=== PATIENT | female | born 1970 | race Caucasian/White ===

== ENCOUNTER 2019-10-31 12:54 | Outpatient (CLI) | payer OTHER ==
--- NOTE | 2019-11-01 07:26 | ULT ---
PELVIC ULTRASOUND WITH ENDOVAGINAL IMAGING 10/31/19 Transabdominal images were obtained initially. Endovaginal imaging was then done due to needing to se e better detail of the uterus and ovaries. The uterus measures 7.0 x 3.5 x 4.1 cm. There are several hypoechoic areas throughout it consistent w ith multiple fibroids. The largest measures 1.3 cm in size. The endometrium is not thick, measuring 4 mm in width. The right ovary was 2.6 cm long and the left was 2.1 cm. No mass or cyst was seen in either. No free fluid was present. IMPRESSION: Several hypoechoic areas throughout the uterus suggestive of several small uterine fibroids. Largest is 1.3 cm in size. POS: HOME
== END 2019-10-31 12:55 | disposition home or self-care (01) ==
LOC: BURULT 12:54
PROVIDERS: ATTEND Family Medicine
DX: N85.2 Hypertrophy of uterus (principal)
CPT/HCPCS: 76856

== ENCOUNTER 2020-01-19 12:49 | Emergency (ER) | payer OTHER | END 2020-01-19 13:11 | disposition home or self-care (01) | LOC: BURERS 12:49 | DX: M25.511 Pain in right shoulder (principal) | CPT/HCPCS: 99281 ==

== ENCOUNTER 2020-05-25 19:21 | Emergency (ER) | payer OTHER ==
[2020-05-25] MEDS ORDERED: Cyclobenzaprine 10 MG TAB ONE (19:53)
[2020-05-25] MEDS ORDERED: methylPREDNISolone Sod Succ/PF 125 MG/2 ML VIAL ONE (19:53)
== END 2020-05-25 20:10 | disposition home or self-care (01) ==
LOC: BURERS 19:21
DX: M54.42 Lumbago with sciatica, left side (principal); E03.9 Hypothyroidism, unspecified; Z87.891 Personal history of nicotine dependence; Z79.899 Other long term (current) drug therapy
CPT/HCPCS: 96372; 99283; J2930

== ENCOUNTER 2020-09-05 11:11 | Emergency (ER) | payer OTHER ==
[2020-09-05] MEDS ORDERED: HYDROcodone/Acetaminophen 5/325 mg Tablet ONE (12:05)
--- NOTE | 2020-09-05 15:27 | RAD ---
LUMBAR SPINE 3 VIEWS: Date: 09/05/2020 No fracture evident. The vertebral alignment seems normal. The disc spaces are normal in height. The SI joints are normal in appearance. A calcification is seen over the lower pole of the right kidney, which either may be within it or within bowel overlying it. IMPRESSION: No acute traumatic changes. POS: HOME
== END 2020-09-05 12:46 | disposition home or self-care (01) ==
LOC: BURERS 11:11
DX: S30.0XXA Contusion of lower back and pelvis, initial encounter (principal); E03.9 Hypothyroidism, unspecified; Z87.891 Personal history of nicotine dependence; Z79.899 Other long term (current) drug therapy; W19.XXXA Unspecified fall, initial encounter
CPT/HCPCS: 72100

== ENCOUNTER 2021-01-04 07:57 | Emergency (ER) | payer OTHER ==
[2021-01-04] MEDS ORDERED: Ketorolac Tromethamine 30 MG/ML VIAL ONE (08:43)
== END 2021-01-04 08:48 | disposition home or self-care (01) ==
LOC: BURERS 07:57
DX: M70.62 Trochanteric bursitis, left hip (principal); E03.9 Hypothyroidism, unspecified; F17.210 Nicotine dependence, cigarettes, uncomplicated; Z79.899 Other long term (current) drug therapy
CPT/HCPCS: 96372; J1885

== ENCOUNTER 2021-01-21 09:38 | Outpatient (CLI) | payer OTHER | END 2021-01-21 09:39 | disposition home or self-care (01) | LOC: BURRAD 09:38 | PROVIDERS: ATTEND Family Medicine | DX: S99.921A Unspecified injury of right foot, initial encounter (principal) ==

== ENCOUNTER 2021-06-13 10:11 | Emergency (ER) | payer OTHER ==
[2021-06-13] MEDS ORDERED: Ondansetron ODT 4 MG TAB ONE (10:45)
[2021-06-13 11:22] LABS: Bilirubin Negative (Negative); Blood, Urine Negative (Negative); Clarity Cloudy (Clear); Glucose, Urine (Dipstick) Negative (Negative); Ketone, Urine Negative (Negative); Leukocyte Negative (Negative); Nitrite Negative (Negative); Protein, Urine (Dipstick) Negative (Neg-Trace); Specific Gravity, Urine 1.015 (1.005-1.030); Urobilinogen 0.2 mg/dL (Less than 2); pH, Urine 7.5 (5.0-9.0)
== END 2021-06-13 11:46 | disposition home or self-care (01) ==
LOC: BURERS 10:11
DX: R11.2 Nausea with vomiting, unspecified (principal); E03.9 Hypothyroidism, unspecified; F17.210 Nicotine dependence, cigarettes, uncomplicated
CPT/HCPCS: 81003; 99284; Q0162

== ENCOUNTER 2023-02-04 08:40 | Outpatient (CLI) | payer BC ==
[2023-02-04] MEDS ORDERED: Iopamidol 370 76% 100 ML VIAL ONE (10:22)
== END 2023-02-04 08:41 | disposition home or self-care (01) ==
LOC: BURCT 08:40
PROVIDERS: ATTEND Family Medicine
DX: K52.9 Noninfective gastroenteritis and colitis, unspecified (principal); K57.30 Diverticulosis of large intestine without perforation or abscess without bleeding; K46.9 Unspecified abdominal hernia without obstruction or gangrene; N20.0 Calculus of kidney
CPT/HCPCS: 74177; Q9967